=== PATIENT | female | born 1970 | race Two or more races ===

== ENCOUNTER 2018-08-15 14:55 | Outpatient (CLI) | payer OTHER | END 2018-08-16 08:19 | disposition home or self-care (01) | LOC: MAMO-SONO 14:55 | DX: N60.11 Diffuse cystic mastopathy of right breast (principal); N60.12 Diffuse cystic mastopathy of left breast; Z12.31 Encounter for screening mammogram for malignant neoplasm of breast ==

== ENCOUNTER 2019-08-21 09:16 | Outpatient (CLI) | payer OTHER | END 2019-08-21 09:21 | disposition home or self-care (01) | LOC: MAMO-SONO 09:16 | DX: N60.11 Diffuse cystic mastopathy of right breast (principal); N60.12 Diffuse cystic mastopathy of left breast ==

== ENCOUNTER 2023-01-02 08:53 | Outpatient (CLI) | payer OTHER | END 2023-01-02 08:56 | disposition home or self-care (01) | LOC: SONOGRAMA 08:53 | PROVIDERS: ATTEND Pathology Anatomic Pathology & Clinical Pathology | DX: D34 Benign neoplasm of thyroid gland (principal) ==